=== PATIENT | male | born 1985 | race Hispanic/Latino ===

== ENCOUNTER 2023-02-12 10:42 | Inpatient (IN) | payer OTHER ==
[2023-02-12] MEDS ORDERED: Aspirin Chewable 81 MG TAB ONE (11:08)
[2023-02-12 11:24] LABS: #Basophils 0.1 thou/uL (0.0-0.2); #Eosinphils 0.2 thou/uL (0.0-0.7); #Lymphocytes 1.8 thou/uL (1.20-3.40); #Monocytes 0.4 thou/uL (0.11-0.59); #Neutrophils 4.9 thou/uL (1.40-6.50); %Basophils 1.2 % (0.0-1.0); %Eosinophils 2.3 % (0.0-10.0); %Lymphocytes 24.6 % (21.0-51.0); %Monocytes 5.1 % (0.0-10.0); %Neutrophils 66.8 % (42.0-75.0); Mean Corpuscular Volume 82.3 fl (78.0-98.0); Mean Platelet Volume 7.9 fL (7.4-10.4); Platelet Count 273 10x3/uL (130-400); RBC Distribution Width 12.3 % (11.5-14.5); Red Blood Cell (RBC) Count 5.35 mill/uL (4.70-6.10); White Blood Cell (WBC) Count 7.4 10x3/uL (4.8-10.8)
[2023-02-12 11:38] LABS: ALT (SGPT) 58 U/L (8-55); AST (SGOT) 32 U/L (5-34); Albumin 4.7 g/dL (3.5-5.0); Alkaline Phosphatase 60 U/L (40-110); Anion Gap 12 mmol/L (10-20); BUN (Urea Nitrogen) 16 mg/dL (8.9-20.6); Bilirubin, Total 0.3 mg/dL (0.2-1.2); CK (CPK) 341 U/L (30-200); Calc. Creatinine Clearance 0 mL/min (70-130); Calcium 9.2 mg/dL (7.8-10.44); Carbon Dioxide 23 mmol/L (22-29); Chloride 104 mmol/L (98-107); Estimated GFR 110; Globulin 2.6 g/dL (2.4-3.5); Glucose 103 mg/dL (70-105); Lipase 50 U/L (8-78); Magnesium 2.1 mg/dL (1.6-2.6); Potassium 4.2 mmol/L (3.5-5.1); Protein, Total 7.3 g/dL (6.0-8.3); Sodium 135 mmol/L (136-145)
[2023-02-12 11:56] LABS: CKMB 4.3 ng/mL (0-6.6)
[2023-02-12] MEDS ORDERED: Nitroglycerin 0.4 MG TAB (25 Tab Bottle) SL PRN (13:15)
[2023-02-12 13:57] VITALS: BMI 34.1
[2023-02-12 14:22] LABS: Troponin I 0.116 ng/mL (< 0.028)
[2023-02-12] MEDS: hydrALAZINE 25 MG TAB PO SCH ×2 (15:22→21:17)
[2023-02-12 17:12] LABS: Troponin I 0.151 ng/mL (< 0.028)
[2023-02-13 05:08] LABS: #Basophils 0.1 thou/uL (0.0-0.2); #Eosinphils 0.2 thou/uL (0.0-0.7); #Lymphocytes 2.2 thou/uL (1.20-3.40); #Monocytes 0.5 thou/uL (0.11-0.59); #Neutrophils 4.6 thou/uL (1.40-6.50); %Basophils 0.8 % (0.0-1.0); %Eosinophils 2.7 % (0.0-10.0); %Monocytes 6.9 % (0.0-10.0); %Neutrophils 60.6 % (42.0-75.0); Hemoglobin 14.3 g/dL (14.0-18.0); Mean Corpuscular HGB CONC 33.3 g/dL (32.0-36.0); Mean Corpuscular Hemoglobin 27.8 pg (27.0-31.0); Mean Corpuscular Volume 83.5 fl (78.0-98.0); Mean Platelet Volume 7.8 fL (7.4-10.4); Platelet Count 262 10x3/uL (130-400); RBC Distribution Width 12.3 % (11.5-14.5); Red Blood Cell (RBC) Count 5.15 mill/uL (4.70-6.10); White Blood Cell (WBC) Count 7.5 10x3/uL (4.8-10.8)
[2023-02-13 05:34] LABS: Anion Gap 12 mmol/L (10-20); BUN (Urea Nitrogen) 15 mg/dL (8.9-20.6); Calc. Creatinine Clearance 156 mL/min (70-130); Carbon Dioxide 22 mmol/L (22-29); Cardiac Risk 8.3 (Less than 4.5); Chloride 108 mmol/L (98-107); Cholesterol 223 mg/dl (< 200 Desired); Estimated GFR 103; Glucose 114 mg/dL (70-105); HDL Cholesterol 27 mg/dL (>60 Neg Risk); LDL Cholesterol, Calculated 138 mg/dL; Sodium 138 mmol/L (136-145); Triglycerides 288 mg/dL (Less than 150); Troponin I 0.128 ng/mL (< 0.028)
[2023-02-13] MEDS ORDERED: ADENOSINE 60 MG/20 ML VIAL ONE (09:30)
[2023-02-13] MEDS: hydrALAZINE 25 MG TAB PO SCH ×3 (12:40→20:06)
[2023-02-13] MEDS ORDERED: Communication Order-Pharmacy FS SCH (14:45)
[2023-02-13] MEDS ORDERED: Heparin 10,000 UNITS/ 10 ML VIAL ONE ×2 (14:49→16:36)
[2023-02-13] MEDS ORDERED: Lidocaine 1% (PF) 30 ML VIAL ONE (14:49)
[2023-02-13] MEDS ORDERED: Verapamil 5 MG/2 ML VIAL ONE ×2 (14:49→14:53)
[2023-02-13] MEDS ORDERED: Nitroglycerin 100MG/250ML BOT 250 ML ONE (14:49)
[2023-02-13] MEDS: Aspirin Chewable 81 MG TAB PO SCH (14:53)
[2023-02-13] MEDS ORDERED: Midazolam HCl 2 mg/2 ml Vial ONE (15:27)
[2023-02-13] MEDS ORDERED: FENTANYL 50 MCG/ML 1 ML VIAL ONE (15:27)
[2023-02-13] MEDS ORDERED: Morphine 4 MG/ML VIAL ONE (16:35)
[2023-02-13] MEDS ORDERED: PHENYLEPHRINE-NS 100 MCG/ML 10 ML SYRINGE ONE (17:06)
[2023-02-13] MEDS ORDERED: TICAGRELOR 90 MG TABLET ONE (17:09)
[2023-02-13] MEDS ORDERED: TICAGRELOR 90 MG TABLET PO SCH (17:36)
[2023-02-13] MEDS: Metoprolol Tartrate 25 MG TAB PO SCH (20:06)
[2023-02-13] MEDS ORDERED: Atorvastatin Calcium 40 MG TAB PO SCH (21:00)
[2023-02-14 04:27] LABS: #Basophils 0.1 thou/uL (0.0-0.2); #Eosinphils 0.3 thou/uL (0.0-0.7); #Lymphocytes 2.7 thou/uL (1.20-3.40); #Monocytes 0.7 thou/uL (0.11-0.59); %Basophils 0.9 % (0.0-1.0); %Eosinophils 3.1 % (0.0-10.0); %Lymphocytes 27.1 % (21.0-51.0); %Monocytes 7.2 % (0.0-10.0); %Neutrophils 61.7 % (42.0-75.0); Hemoglobin 14.8 g/dL (14.0-18.0); Mean Corpuscular HGB CONC 33.4 g/dL (32.0-36.0); Mean Corpuscular Hemoglobin 27.7 pg (27.0-31.0); Mean Corpuscular Volume 82.8 fl (78.0-98.0); Mean Platelet Volume 7.8 fL (7.4-10.4); Platelet Count 261 10x3/uL (130-400); RBC Distribution Width 12.5 % (11.5-14.5); Red Blood Cell (RBC) Count 5.34 mill/uL (4.70-6.10); White Blood Cell (WBC) Count 9.8 10x3/uL (4.8-10.8)
[2023-02-14 04:51] LABS: ALT (SGPT) 49 U/L (8-55); AST (SGOT) 25 U/L (5-34); Albumin 4.2 g/dL (3.5-5.0); Alkaline Phosphatase 53 U/L (40-110); Anion Gap 13 mmol/L (10-20); BUN (Urea Nitrogen) 17 mg/dL (8.9-20.6); Bilirubin, Total 0.3 mg/dL (0.2-1.2); Calc. Creatinine Clearance 180 mL/min (70-130); Calcium 8.7 mg/dL (7.8-10.44); Carbon Dioxide 22 mmol/L (22-29); Chloride 107 mmol/L (98-107); Estimated GFR 116; Globulin 2.4 g/dL (2.4-3.5); Glucose 114 mg/dL (70-105); Potassium 3.9 mmol/L (3.5-5.1); Protein, Total 6.6 g/dL (6.0-8.3); Sodium 138 mmol/L (136-145)
[2023-02-14] MEDS ORDERED: TICAGRELOR 90 MG TABLET PO SCH (09:00)
[2023-02-14] MEDS ORDERED: Lisinopril 2.5 MG TAB PO SCH (09:00)
[2023-02-14] MEDS: hydrALAZINE 25 MG TAB PO SCH (09:19)
[2023-02-14] MEDS: Metoprolol Tartrate 25 MG TAB PO SCH (09:20)
[2023-02-14] MEDS: Aspirin Chewable 81 MG TAB PO SCH (09:20)
[2023-02-14 11:50] VITALS: TEMP 98.2
[2023-02-14 13:28] VITALS: BP 131/75
== END 2023-02-14 15:05 | disposition home or self-care (01) | DRG 247 ==
LOC: ERS 10:42 → 2SW 12:58 → INTOOBSV 12:58 → OBSVTOIN 02-13 13:27
PROVIDERS: ADMIT Hospitalist; ATTEND Family Medicine
PROC: 027034Z Dilation of Coronary Artery, One Artery with Drug-eluting Intraluminal Device, Percutaneous Approach (ICD-10-PCS; principal; 2023-02-13)
PROC: 4A023N7 Measurement of Cardiac Sampling and Pressure, Left Heart, Percutaneous Approach (ICD-10-PCS; 2023-02-13)
PROC: B2111ZZ Fluoroscopy of Multiple Coronary Arteries using Low Osmolar Contrast (ICD-10-PCS; 2023-02-13)
PROC: B2151ZZ Fluoroscopy of Left Heart using Low Osmolar Contrast (ICD-10-PCS; 2023-02-13)
DX: I21.4 Non-ST elevation (NSTEMI) myocardial infarction (principal); I11.9 Hypertensive heart disease without heart failure; E78.5 Hyperlipidemia, unspecified; I20.0 Unstable angina; E78.00 Pure hypercholesterolemia, unspecified; Z20.822 Contact with and (suspected) exposure to COVID-19; Z98.890 Other specified postprocedural states; Z87.891 Personal history of nicotine dependence; Z82.49 Family history of ischemic heart disease and other diseases of the circulatory system
CPT/HCPCS: 36415; 36416; 71045; 78452; 80048; 80053; 80061; 82550; 82553; 83690; 83735; 84484; 85025; 85347; 93005; 93010; 93017; 93306; 93798; 94760; A9500; C1725; C1769; C1874; C1887; C1894; G0378; J1644; J1650; J2001; J2250; J2270; J3010; U0003; U0005

== ENCOUNTER 2023-09-01 17:00 | Outpatient (CLI) | payer OTHER | END 2023-09-01 17:01 | disposition home or self-care (01) | LOC: SLEEPLAB 17:00 | PROVIDERS: ATTEND Nurse Practitioner Family | DX: G47.33 Obstructive sleep apnea (adult) (pediatric) (principal); I21.9 Acute myocardial infarction, unspecified; I10 Essential (primary) hypertension; I25.10 Atherosclerotic heart disease of native coronary artery without angina pectoris; R73.03 Prediabetes; R53.83 Other fatigue; R06.83 Snoring; R40.0 Somnolence | CPT/HCPCS: 95800 ==